=== PATIENT | male | born 1970 | race American Indian/Alaskan Native ===

== ENCOUNTER 2017-08-09 19:13 | Emergency (ER) | payer SELFPAY ==
[2017-08-09 19:26] VITALS: BP 145/102
[2017-08-09] MEDS ORDERED: MOTRIN ONE (19:29)
[2017-08-09] MEDS ORDERED: MOTRIN PO ONE (19:34)
== END 2017-08-10 00:14 | disposition left against medical advice (07) ==
LOC: ED 19:13
DX: K80.80 Other cholelithiasis without obstruction (principal); Z53.21 Procedure and treatment not carried out due to patient leaving prior to being seen by health care provider